=== PATIENT | female | born 1955 | race Caucasian/White ===

== ENCOUNTER 2023-12-12 10:29 | Emergency (ER) | payer MEDICARE ==
[~2023-12-12] VITALS: Ht 162.6 cm; Wt 73.9 kg
[2023-12-12] MEDS ORDERED: ATIVAN0.5 MG PO (10:50)
[2023-12-12] MEDS ORDERED: ZANAFLEX CAPSULE2 MG PO (10:50)
[2023-12-12] MEDS ORDERED: PROTONIX TR40 M1 PO (10:50)
[2023-12-12] MEDS ORDERED: ONDANSETRON HYDR4 MG PO (10:51)
[2023-12-12] MEDS ORDERED: AVAPRO300 M1 PO (10:51)
[2023-12-12] MEDS ORDERED: TOPROL XL 50MG50 MG PO (10:51)
[2023-12-12] MEDS ORDERED: BUDESONIDE-FO10.2 G1 IH (10:52)
[2023-12-12] MEDS ORDERED: tiZANidine 4 MG TABLET PO ONE (11:30)
[2023-12-12] MEDS ORDERED: Ketorolac 30 MG/ML VIAL IM ONE (11:30)
[2023-12-12] MEDS ORDERED: TIZANIDINE HYDRO2 M1 PO (12:30)
[2023-12-12] MEDS ORDERED: KETOROLAC10 MG PO (12:30)
[2023-12-12 12:52] VITALS: BP 135/67
== END 2023-12-12 12:50 | disposition home or self-care (01) ==
LOC: ED 10:29
DX: S39.012A Strain of muscle, fascia and tendon of lower back, initial encounter (principal); M48.07 Spinal stenosis, lumbosacral region; X50.1XXA Overexertion from prolonged static or awkward postures, initial encounter
CPT/HCPCS: J1885